=== PATIENT | male | born 1960 | race Caucasian/White ===

== ENCOUNTER 2018-07-16 13:31 | Emergency (ER) | payer BC ==
[2018-07-16] MEDS ORDERED: Metoclopramide IV* 5 MG/ML 2 ML VIAL IV ONE (15:54)
[2018-07-16] MEDS ORDERED: NS 0.9% 1000 ML* 1,000 ML IV ONE (15:54)
[2018-07-16] MEDS ORDERED: Famotidine IV* 10 MG/ML 2 ML (20 mg) IV ONE (15:54)
--- NOTE | 2018-07-16 16:17 | ED ---
GI/ HPI - HPI Summary HPI Summary: This patient is a 57 year old M presenting to [facility] with c/o n/v/d onset two days ago. Associated sx: abd discomfort, fever onset 24 hours ago, lethargy, weakness. Pt fell when he was getting off the commode. Denies melena, urinary sx , CP,SOB, palpitations. No recent ABX, no recent travel. - History of Current Complaint Chief Complaint: EDNauseaVomitDiarrh Time Seen by Provider: 07/16/18 15:24 Stated Complaint: DIARRHEA/POSS DEHYDRATION Hx Obtained From: Patient Onset/Duration: Started Days Ago, Atraumatic, Still Present Timing: Constant Severity: Moderate Current Severity: Mild Pain Intensity: 0 - out of 10 Associated Signs and Symptoms: Positive: Weakness, Nausea, Diarrhea, Fever, Abdominal Pain - "discomfort", Other: - pos: lethargy. Negative: Black Tarry Stool, Hematuria, Dysuria Aggravating Factor(s): Nothing Alleviating Factor(s): Nothing - Allergy/Home Medications Allergies/Adverse Reactions: Allergies Allergy/AdvReac Type Severity Reaction Status Date / Time No Known Allergies Allergy Verified 07/16/18 13:36 PMH/Surg Hx/FS Hx/Imm Hx Previously Healthy: No Cardiovascular History: Reports: Hx Hypertension Psychiatric History: Reports: Hx Depression Infectious Disease History: No Infectious Disease History: Denies: Traveled Outside the [place] in Last 30 Days - Family History Known Family History: Positive: Cardiac Disease - CHF on both sides of family. 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 Negative: Other - neg: melena Negative: dysuria, hematuria Positive: Weakness All Other Systems Reviewed And Are Negative: Yes Physical Exam - Summary Physical Exam Summary: GENERAL: Patient is a well-developed and nourished M who is lying comfortable in the stretcher. Patient is not in any acute respiratory distress. HEAD AND FACE: Normocephalic EYES: PERRLA, EOMI x 2. EARS: Hearing grossly intact. MOUTH: Oropharynx within normal limits. NECK: Supple, trachea is midline, no adenopathy, no JVD, no carotid bruit. CHEST: Symmetric, no tenderness at palpation LUNGS: Clear to auscultation bilaterally. No wheezing or crackles. CVS: Regular rate and rhythm, S1 and S2 present, no murmurs or gallops appreciated. ABDOMEN: Soft, non-tender. Bowel sounds are normal. No abdominal abnormal pulsations. EXTREMITIES: Full ROM in all major joints, no edema, no cyanosis or clubbing. NEURO: Alert and oriented x 3. No acute neurological deficits. Speech is normal and follows commands. SKIN: Dry and warm Triage Information Reviewed: Yes Vital Signs On Initial Exam: Initial Vitals Temp Pulse Resp BP Pulse Ox 98.0 F 87 14 126/83 98 07/16/18 13:33 07/16/18 13:33 07/16/18 13:33 07/16/18 13:33 07/16/18 13:33 Vital Signs Reviewed: Yes Diagnostics - Vital Signs Vital Signs Temp Pulse Resp BP Pulse Ox 07/16/18 15:44 78 126/75 97 07/16/18 15:13 81 22 141/80 93 07/16/18 15:12 83 20 93 07/16/18 13:33 98.0 F 87 14 126/83 98 - Laboratory Result Diagrams: 07/16/18 16:51 07/16/18 16:51 Lab Statement: Any lab studies that have been ordered have been reviewed, and results considered in the medical decision making process. GIGU Course/Dx - Course Course Of Treatment: This patient is a 57 year old M presenting to [facility] with c/ o n/v/d onset two days ago. Pt will be signed out to Dr. Francis at shift change pending CT results. - Diagnoses Provider Diagnoses: Infectious colitis Discharge - Sign-Out/Discharge Documenting (check all that apply): Sign-Out Patient Signing out patient TO: Rogers Francis - pending CT result - Discharge Plan Condition: Good Disposition: HOME Prescriptions: Dicyclomine CAP* [Bentyl CAP*] 10 mg PO TID PRN #15 cap MDD 6 tabs PRN Reason: Pain - Abdominal Ondansetron [Zofran Odt] 8 mg PO Q6HR PRN #12 tab.rapdis PRN Reason: Nausea Patient Education Materials: Infectious Colitis (ED) Referrals: Trung Fisher MD [Primary Care Provider] - 3 Days (if not improving) - Billing Disposition and Condition Condition: GOOD Disposition: Home - Attestation Statements Document Initiated by Moustaphaibe: Yes Documenting Scribe: Kali Padron Provider For Whom Scribe is Documenting (Include Credential): Dr. Fidel Johnson MD Scribe Attestation: I, Kali Padron, scribed for Dr. Fidel Johnson MD on 07/17/18 at 0808. Scribe Documentation Reviewed: Yes Provider Attestation: The documentation as recorded by the Kali gamino accurately reflects the service I personally performed and the decisions made by me, Dr. Fidel Johnson MD
[2018-07-16 17:06] LABS: ABS Basophils 0 10^3/ul (0-0.2); ABS Eosinophils 0 10^3/ul (0-0.6); ABS Monocytes 0.6 10^3/ul (0-0.8); ABS Neutrophils 3.9 10^3/ul (1.5-7.7); ABS Nucleated RBC 0 10^3/ul; Eosinophil % 0.1 % (0-6); Hematocrit 46 % (42-52); Hemoglobin 16.2 g/dl (14.0-18.0); Lymphocyte % 18.5 % (25-47); Mean Corpuscular HGB Conc 35 g/dl (31-36); Mean Corpuscular Hemoglobin 31 pg (27-31); Mean Corpuscular Volume 88 fL (80-94); Mean Platelet Volume 8.5 um3 (7.4-10.4); Nucleated Red Blood Cells % 0.2; Platelet Count 135 10^3/ul (150-450); Red Blood Count 5.26 10^6/ul (4.00-5.40); Red Cell Distribution Width 14 % (10.5-15); White Blood Count 5.5 10^3/ul (3.5-10.8)
[2018-07-16 17:18] LABS: INR 1.02 (0.77-1.02)
[2018-07-16 17:24] LABS: EGFR Non-African American 55.6 (>60)
[2018-07-16 17:27] LABS: Urine Appearance Cloudy; Urine Blood Negative (Negative); Urine Color Yellow; Urine Ketones Negative (Negative); Urine Protein 1+(30 mg/dL) (Negative); Urine Red Blood Cell Trace(0-2/hpf) (Absent); Urine Specific Gravity 1.012 (1.010-1.030); Urine Urobilinogen Negative (Negative); Urine White Blood Cell 1+(6-10/hpf) (Absent)
[2018-07-16] MEDS ORDERED: Magnesium Sulfate 2 GM IV* 2 GM/50 ML BAG IVPB ONE (17:42)
[2018-07-16] MEDS ORDERED: Iodixanol* (CONTRAST) 320 MG/ML 100 ML SDV IV ONE (17:56)
--- NOTE | 2018-07-16 19:06 | RAD ---
EXAM: CT Abdomen and Pelvis With Intravenous Contrast CLINICAL HISTORY: 57 years old, male; Pain; Abdominal pain; Localized; Lower; Patient HX: Abdominal pain with diarrhea, evaluate for colitis. Iv contrast only per er provider; Additional info: Abdominal pain with diarrhea eval for colitis TECHNIQUE: Axial computed tomography images of the abdomen and pelvis with intravenous contrast. All CT scans at this facility use at least one of these dose optimization techniques: automated exposure control; mA and/or kV adjustment per patient size (includes targeted exams where dose is matched to clinical indication); or iterative reconstruction. Coronal and sagittal reformatted images were created and reviewed. CONTRAST: 100 mL of VISIPAQUE administered intravenously. COMPARISON: No relevant prior studies available. FINDINGS: Lung bases: Normal. No mass. No consolidation. ABDOMEN: Liver: Normal. No masses. Portal and hepatic veins are patent. Gallbladder and bile ducts: Normal. No radiopaque calculi. No ductal dilation. Pancreas: Normal. No mass. No ductal dilation. Spleen: Normal. No splenomegaly. Adrenals: Normal. No mass. Kidneys and ureters: Normal. No solid mass. Stomach and bowel: Incompletely distended grossly normal stomach. Normal caliber small bowel. Subtle wall thickening throughout the colon with mild colonic stranding. PELVIS: Appendix: Normal caliber appendix without wall thickening or adjacent inflammation. Bladder: Thin-walled bladder with no focal nodularity, perivesicular stranding, or calcifications. Reproductive: Normal sized prostate. Normal seminal vesicles. ABDOMEN and PELVIS: Intraperitoneal space: Normal. No pneumoperitoneum. No ascities. Bones/joints: The spine demonstrates mild degenerative changes at multiple levels. Mild bilateral hip primary osteoarthritis. No fractures. No suspicious bone lesions. Soft tissues: Normal. No hernias. Vasculature: The aorta demonstrates mild atherosclerotic calcification. Patent IVC. No abdominal aortic aneurysm. Lymph nodes: None enlarged. IMPRESSION: Findings of infectious interiano colitis.
[2018-07-16] MEDS ORDERED: Magnesium Sulfate IV* 2 GM in NS 0.9% 100 ML* 100 ML IVPB ONE (19:15)
--- NOTE | 2018-07-16 19:56 | ED ---
Progress - Progress Note Progress Note: Pt was signed out by Dr. Johnson to Dr. Francis. Awaiting CT results. - EKG/XRAY/CT CT: Findings of infectious interiano colitis. ED physician has reviewed this report Re-Evaluation - Re-Evaluation First Eval Re-Evaluation Time: 20:01 Change: Improved Course/Dx - Course Course Of Treatment: This patient is a 57 year old M presenting to [facility] with c/ o n/v/d onset two days ago. Pt will be signed out to Dr. Francis at shift change pending CT results. - Diagnoses Provider Diagnoses: Infectious colitis Discharge - Sign-Out/Discharge Documenting (check all that apply): Patient Departure, Receiving Sign-Out Signing out patient TO: Rogers Francis Receiving patient FROM: Fidel Johnson - Discharge Plan Condition: Good Disposition: HOME Prescriptions: Dicyclomine CAP* [Bentyl CAP*] 10 mg PO TID PRN #15 cap MDD 6 tabs PRN Reason: Pain - Abdominal Ondansetron [Zofran Odt] 8 mg PO Q6HR PRN #12 tab.rapdis PRN Reason: Nausea Patient Education Materials: Infectious Colitis (ED) Referrals: Trung Fisher MD [Primary Care Provider] - 3 Days (if not improving) - Attestation Statements Document Initiated by Scribe: Yes Documenting Scribe: Miguel Salazar Provider For Whom Scribe is Documenting (Include Credential): Dr. Rogers Francis MD Scribe Attestation: Miguel Marley, scribed for Dr. Rogers Francis MD on 07/16/18 at 2006.
[2018-07-16] MEDS ORDERED: Ondansetron ODT TAB* 4 MG SL ONE (20:04)
[2018-07-16] MEDS ORDERED: Dicyclomine CAP* 10 MG PO ONE (20:04)
[2018-07-16 20:19] VITALS: BP 147/73
--- NOTE | 2018-07-18 11:23 | PN ---
Progress Note - Progress Note Date of Service: 07/16/18 Note: Pt. seen in ER 07/16 for diarrhea and abd. pain. Stool culture today is positive for salmonella. I called and informed pt. of culture result today at 1119. Pt. states that his symptoms are starting to improve. No treatment indicated at this time. Advised to continue PO hydration. Advised good home hygiene. Will f.u with PCP. Pt. understands and agrees.
== END 2018-07-16 20:18 | disposition home or self-care (01) ==
LOC: ED 13:31
DX: A09 Infectious gastroenteritis and colitis, unspecified (principal); R11.2 Nausea with vomiting, unspecified; R19.7 Diarrhea, unspecified; R50.9 Fever, unspecified; I10 Essential (primary) hypertension
CPT/HCPCS: 36415; 74177; 80053; 81003; 81015; 83605; 83630; 83690; 83735; 85025; 85610; 85730; 86140; 87040; 87045; 87046; 87077; 87086; 87493; 87899; 96374; 96375; 99283; A9270-GY; J2765; J3475; Q9967